=== PATIENT | female | born 1950 | race Caucasian/White ===

== ENCOUNTER 2024-10-03 04:45 | Emergency (ER) | payer MEDICARE, OTHER ==
[~2024-10-03] VITALS: Ht 172.7 cm; Wt 101.6 kg
[2024-10-03 07:01] LABS: BASOPHILS # (AUTO) 0.1 K/UL (0.0-0.2); BASOPHILS % (AUTO) 0.9 % (0.0-2.0); EOSINOPHILS # (AUTO) 0.5 K/uL (0.0-0.7); EOSINOPHILS % (AUTO) 6.3 % (0.0-7.0); HEMATOCRIT 36.4 % (31.2-41.9); HEMOGLOBIN 12.5 g/dL (10.9-14.3); LYMPHOCYTES # (AUTO) 1.2 K/uL (0.8-4.8); LYMPHOCYTES % (AUTO) 15.2 % (20.5-51.5); MEAN CORPUSCULAR HEMOGLOBIN 27.5 uug (24.7-32.8); MEAN CORPUSCULAR HGB CONC 35 g/dL (32.3-35.6); MEAN CORPUSCULAR VOLUME 79.8 fL (75.5-95.3); MONOCYTES # (AUTO) 0.4 K/uL (0.1-1.30); MONOCYTES % (AUTO) 5.6 % (0.0-11.0); NEUTROPHILS # (AUTO) 5.6 K/uL (1.8-8.9); PLATELET COUNT (AUTO) 183 K/uL (179-408); RED BLOOD CELL COUNT(AUTO) 4.56 MIL/uL (3.63-4.92); WHITE BLOOD COUNT (AUTO) 7.8 K/uL (3.8-11.8)
[2024-10-03 07:11] LABS: DIFFERENTIAL COMMENT 1
[2024-10-03 07:22] LABS: ALANINE AMINOTRANSFERASE 19 U/L (14-59); ALBUMIN 3.5 g/dL (3.4-5.0); ALKALINE PHOSPHATASE 72 U/L (50-136); ASPARTATE AMINOTRANSFERASE 14 U/L (15-37); BILIRUBIN,DIRECT 0.2 mg/dL (0.0-0.2); BILIRUBIN,TOTAL 0.6 mg/dL (0.2-1.0); CALCIUM 7.9 mg/dL (8.5-10.1); CARBON DIOXIDE 27 mmol/L (21-32); CHLORIDE 110 mmol/L (98-107); GLUCOSE 112 mg/dL (74-106); NT-PRO BNP 70 pg/mL (0-125); POTASSIUM 3.8 mmol/L (3.5-5.1); SODIUM SERUM 145 mmol/L (136-145); TOTAL PROTEIN, SERUM 6.4 g/dL (6.4-8.2); UREA NITROGEN, BLOOD 14 mg/dL (7-18)
[2024-10-03] MEDS ORDERED: AZITHROMYCIN 250 MG TABLET ONE (07:48)
[2024-10-03] MEDS ORDERED: CEFTRIAXONE /D5W 50ML IVPB **ER PYXIS IV ONE (07:48)
[2024-10-03] MEDS ORDERED: DEXAMETHASONE SOD PHOSPHATE 10 MG INJ ONE (07:49)
[2024-10-03] MEDS: DEXAMETHASONE SOD PHOSPHATE 4 MG INJ IV ONE (08:03)
[2024-10-03] MEDS: AZITHROMYCIN 250 MG TABLET PO ONE (08:04)
[2024-10-03] MEDS: CEFTRIAXONE 1 G in IV DEXTROSE 5% 50 ML IV ONE (08:04)
[2024-10-03] MEDS: IV NORMAL SALINE 1000 ML BAG IV ONE (08:04)
[2024-10-03] MEDS ORDERED: AZIT500T PO (11:21)
[2024-10-03] MEDS ORDERED: PROM118S5 PO (11:21)
[2024-10-03 11:37] VITALS: BP 127/60; TEMP 99.8; O2SAT 96
[2024-10-03 11:54] LABS: *BILIRUBIN,URIN NEGATIVE (NEGATIVE); *BLOOD, URINE NEGATIVE (NEGATIVE); *CLARITY,URINE CLEAR (CLEAR); *COLOR,URINE YELLOW (YELLOW); *KETONES,URINE NEGATIVE (NEGATIVE); *PROTEIN,URINE NEGATIVE (NEGATIVE); *UROBILINOGEN,URINE 0.2 E.U./dl (NORMAL); LEUKOCYTE ESTERASE ,URINE NEGATIVE (NEGATIVE); NITRITE, URINE NEGATIVE (NEGATIVE); PH,URINE 5.5 (5.0-8.0); UGLUCOSE NEGATIVE (NEGATIVE)
== END 2024-10-03 11:38 | disposition home or self-care (01) ==
LOC: ER 04:55
DX: J18.1 Lobar pneumonia, unspecified organism (principal); R19.7 Diarrhea, unspecified; E11.9 Type 2 diabetes mellitus without complications; R94.31 Abnormal electrocardiogram [ECG] [EKG]; Z90.89 Acquired absence of other organs; Z20.822 Contact with and (suspected) exposure to COVID-19; Z88.0 Allergy status to penicillin
CPT/HCPCS: 99285; 96365; 71045; 96375; 87426; 87804 ×2; 80076; 80048; 81003; 83880; 85025; 85730; 86403; 87040 ×2; 87070; 36415; 93005; 83605; 87086; J0696; J1100; J7040 ×2; A4606; A4663; Q0144

== ENCOUNTER 2025-04-04 14:53 | Inpatient (IN) | payer BC, OTHER ==
[~2025-04-04] VITALS: Ht 172.7 cm; Wt 95.7 kg
[~2025-04-04 14:53] MED LIST: ALPR0.255 PO; AZIT500T PO; LEVO125T8 PO; METF-440 PO; MOUNJARO SUBCUT; PARO40TA4 PO; PROM118S5 PO; ROSU20TA2 PO; TERB250T52 PO; TRAZ-252 PO
[2025-04-04] MEDS ORDERED: LORAZEPAM 0.5 MG TABLET ONE (16:28)
[2025-04-04] MEDS: LORAZEPAM 0.5 MG TABLET PO ONE (16:30)
[2025-04-04 16:51] LABS: PLATELET COUNT (AUTO) 195 K/uL (179-408); RED BLOOD CELL COUNT(AUTO) 5.06 MIL/uL (3.63-4.92); RED CELL DISTRIBUTION WIDTH 15.3 % (12.3-17.7); WHITE BLOOD COUNT (AUTO) 6.3 K/uL (3.8-11.8)
[2025-04-04 16:58] LABS: CREATININE 0.9 mg/dL (0.6-1.3); SODIUM SERUM 140 mmol/L (136-145); UREA NITROGEN, BLOOD 16 mg/dL (7-18)
[2025-04-04 17:03] LABS: ASPARTATE AMINOTRANSFERASE 17 U/L (15-37); TOTAL PROTEIN, SERUM 7.0 g/dL (6.4-8.2)
[2025-04-04 17:06] LABS: ETHANOL < 3 MG/DL (0-10)
[2025-04-04 17:25] LABS: *BILIRUBIN,URIN NEGATIVE (NEGATIVE); *BLOOD, URINE NEGATIVE (NEGATIVE); *CLARITY,URINE SLIGHTLY CLOUDY (CLEAR); *COLOR,URINE YELLOW (YELLOW); *KETONES,URINE TRACE (NEGATIVE); *PROTEIN,URINE NEGATIVE (NEGATIVE); *UROBILINOGEN,URINE 0.2 E.U./dl (NORMAL); LEUKOCYTE ESTERASE ,URINE TRACE (NEGATIVE); NITRITE, URINE NEGATIVE (NEGATIVE); UGLUCOSE NEGATIVE (NEGATIVE)
[2025-04-04 17:43] LABS: *AMPHETAMINE, URINE NEGATIVE (NEGATIVE); *BARBITURATE, URINE NEGATIVE (NEGATIVE); *BENZODIAZEPINE, URINE NEGATIVE (NEGATIVE); *CANNABINOID, URINE NEGATIVE (NEGATIVE); *COCCAINE, URINE NEGATIVE (NEGATIVE); *OPIATE, URINE NEGATIVE (NEGATIVE); *PHENCYCLIDINE SCREEN,URINE NEGATIVE (NEGATIVE); FENTANYL, URINE NEGATIVE (NEGATIVE)
[2025-04-04 18:06] LABS: CALCIUM OXALATE CRYSTALS,UR MANY /HPF (NONE SEEN); SQUAMOUS EPITHELIAL CELL,UR MODERATE /HPF (NONE SEEN)
[2025-04-04] MEDS ORDERED: ALBU18HF2 INH (18:22)
[2025-04-04] MEDS ORDERED: METF-440 PO (18:22)
[2025-04-04] MEDS ORDERED: PARO30TA74 PO (18:22)
[2025-04-04] MEDS ORDERED: MULT-213 PO (18:22)
[2025-04-04] MEDS ORDERED: TRAZ-182 PO (18:22)
[2025-04-04] MEDS ORDERED: LIOT5TAB11 PO (18:22)
[2025-04-04] MEDS ORDERED: LEVO125T8 PO (18:22)
[2025-04-04] MEDS ORDERED: ROSU20TA2 PO (18:22)
[2025-04-04] MEDS ORDERED: QUETIAPINE FUMARATE 25 MG TABLET PO PRN ×2 (21:45→22:30)
[2025-04-04] MEDS ORDERED: QUETIAPINE FUMARATE 25 MG TABLET PO ONE (21:45)
[2025-04-04] MEDS ORDERED: MAG HYDROX/AL HYDROX/SIMETH 30 ML LIQUID UDC PO PRN (21:45)
[2025-04-04] MEDS ORDERED: MAGNESIUM HYDROXIDE 30 ML LIQUID UDC PO PRN (21:45)
[2025-04-04] MEDS: BLOOD SUGAR DIAGNOSTIC 1 EACH STRIP VI ONE (22:27)
[2025-04-04] MEDS: ZOLPIDEM 5 MG TABLET PO PRN (22:51)
[2025-04-05 07:43] LABS: GLUCOSE FASTING 120.0 mg/dL (70-115)
[2025-04-05 08:07] VITALS: BP 126/61; TEMP 98.4; O2SAT 96
[2025-04-05] MEDS: PAROXETINE HCL 20 MG TABLET PO SCH (12:00)
[2025-04-05] MEDS ORDERED: ALBUTEROL SULFATE 8 GM HFA.AER.AD INH PRN (12:30)
[2025-04-05] MEDS ORDERED: INSULIN REGULAR, HUMAN 1000 UNIT/10 ML VIAL SQ PRN (13:00)
[2025-04-05] MEDS ORDERED: INSULIN REGULAR, HUMAN 300 UNITS/3 ML VIAL SQ PRN (13:00)
[2025-04-05] MEDS: CLONAZEPAM 0.5 MG TABLET PO SCH (13:00)
[2025-04-05] MEDS ORDERED: DEXTROSE 50% 50 ML DISP.SYRIN IV PRN (13:00)
[2025-04-05] MEDS ORDERED: ALBUTEROL SULFATE 2.5 MG/3 ML NEBU NEB PRN (13:45)
[2025-04-05 15:40] VITALS: BP 105/65; TEMP 98; O2SAT 96
[2025-04-05] MEDS: BLOOD SUGAR DIAGNOSTIC 1 EACH STRIP VI SCH (16:47)
[2025-04-05] MEDS: METFORMIN HCL 500 MG TABLET PO SCH (17:25)
[2025-04-05 19:43] VITALS: BP 111/56; TEMP 99; O2SAT 95
[2025-04-05] MEDS: ATORVASTATIN 40 MG TABLET PO SCH (20:12)
[2025-04-05] MEDS: ZOLPIDEM 5 MG TABLET PO PRN (22:01)
[2025-04-06] MEDS: LIOTHYRONINE SODIUM 5 MCG TABLET PO SCH (06:34)
[2025-04-06] MEDS: LEVOTHYROXINE SODIUM 125 MCG TABLET PO SCH (06:34)
[2025-04-06] MEDS: TERBINAFINE 250 MG TABLET PO SCH (08:15)
[2025-04-06 10:48] VITALS: BP 134/48; TEMP 98.2; O2SAT 99
[2025-04-06 15:55] VITALS: BP 118/65; TEMP 98; O2SAT 96
[2025-04-06 20:00] VITALS: BP 100/46; TEMP 97.6; O2SAT 95
[2025-04-06] MEDS: QUETIAPINE FUMARATE 25 MG TABLET PO SCH (20:38)
[2025-04-07 07:30] VITALS: BP 126/67; TEMP 98; O2SAT 99
[2025-04-07 15:15] VITALS: BP 110/67; TEMP 98; O2SAT 96
[2025-04-07 20:00] VITALS: BP 120/60; TEMP 98.1; O2SAT 95
[2025-04-08 08:40] VITALS: BP 127/49; TEMP 98; O2SAT 96
[2025-04-08 16:36] VITALS: BP 118/51; TEMP 98.1; O2SAT 95
[2025-04-08] MEDS: ACETAMINOPHEN 325 MG TABLET PO PRN (17:46)
[2025-04-08 20:00] VITALS: BP 112/51; TEMP 98.4; O2SAT 94
[2025-04-09 08:00] VITALS: BP 122/61; TEMP 98; O2SAT 96
[2025-04-09 16:51] VITALS: BP 112/68; TEMP 98.1; O2SAT 95
[2025-04-09 19:53] VITALS: BP 115/65; TEMP 98.3; O2SAT 94
[2025-04-10 08:08] VITALS: BP 149/57; TEMP 98.1; O2SAT 95
[2025-04-10 16:05] VITALS: BP 105/64; TEMP 98.1; O2SAT 95
[2025-04-10 20:00] VITALS: BP 115/52; TEMP 98; O2SAT 96
[2025-04-11 00:30] VITALS: BP 114/64; O2SAT 96
[2025-04-11 08:35] VITALS: BP 134/58; TEMP 97.4; O2SAT 95
[2025-04-11] MEDS: CLONAZEPAM 0.5 MG TABLET PO ONE (10:40)
[2025-04-11] MEDS: PAROXETINE HCL 10 MG TABLET PO ONE (10:50)
[2025-04-11 15:46] VITALS: BP 121/56; TEMP 98.3; O2SAT 100
[2025-04-11 19:54] VITALS: BP 122/61; TEMP 98.1; O2SAT 94
[2025-04-12 08:06] VITALS: BP 94/50; TEMP 98.2; O2SAT 98
[2025-04-12 15:19] VITALS: BP 112/58; TEMP 98; O2SAT 98
[2025-04-12 19:50] VITALS: BP 105/51; TEMP 98.2; O2SAT 96
[2025-04-12 20:00] VITALS: BP 103/51; TEMP 98.2; O2SAT 96
[2025-04-13 07:50] VITALS: BP 113/62; TEMP 98; O2SAT 98
== END 2025-04-13 11:15 | DRG 885 ==
LOC: ER 14:53 → GPS 21:23
PROVIDERS: ADMIT Psychiatry & Neurology Psychiatry; ATTEND Student in an Organized Health Care Education/Training Program
DX: F39 Unspecified mood [affective] disorder (principal); F41.1 Generalized anxiety disorder; E78.5 Hyperlipidemia, unspecified; Z85.3 Personal history of malignant neoplasm of breast; Z90.11 Acquired absence of right breast and nipple; E89.0 Postprocedural hypothyroidism; Z79.890 Hormone replacement therapy; Z79.899 Other long term (current) drug therapy; Z88.0 Allergy status to penicillin; Z68.32 Body mass index [BMI] 32.0-32.9, adult; E66.9 Obesity, unspecified; E11.9 Type 2 diabetes mellitus without complications; Z79.85 Long-term (current) use of injectable non-insulin antidiabetic drugs; Z79.84 Long term (current) use of oral hypoglycemic drugs; Z87.891 Personal history of nicotine dependence; Z62.810 Personal history of physical and sexual abuse in childhood
CPT/HCPCS: 36415; 84443; 85025; 87086; A4606; A4663; G0480; J1815

== ENCOUNTER 2025-06-26 09:48 | Emergency (ER) | payer MEDICARE, OTHER ==
[~2025-06-26] VITALS: Ht 172.7 cm; Wt 89.4 kg
[~2025-06-26 09:48] MED LIST changes: +ALBU18HF2 INH; -ALPR0.255 PO; -AZIT500T PO; +LIOT5TAB11 PO; -PARO40TA4 PO; -PROM118S5 PO; -TRAZ-252 PO
[2025-06-26 10:22] LABS: PLATELET COUNT (AUTO) 170 K/uL (179-408); RED BLOOD CELL COUNT(AUTO) 4.79 MIL/uL (3.63-4.92); RED CELL DISTRIBUTION WIDTH 14.7 % (12.3-17.7); WHITE BLOOD COUNT (AUTO) 4.8 K/uL (3.8-11.8)
[2025-06-26 10:29] LABS: CREATININE 0.7 mg/dL (0.6-1.3); SODIUM SERUM 140 mmol/L (136-145); UREA NITROGEN, BLOOD 16 mg/dL (7-18)
[2025-06-26 11:57] VITALS: BP 130/78
[2025-06-26 12:01] VITALS: BP 130/78; O2SAT 99
== END 2025-06-26 12:02 | disposition home or self-care (01) ==
LOC: ER 09:48
DX: R07.89 Other chest pain (principal); F41.1 Generalized anxiety disorder; E11.9 Type 2 diabetes mellitus without complications; E78.5 Hyperlipidemia, unspecified; J98.4 Other disorders of lung; Z79.890 Hormone replacement therapy; Z79.899 Other long term (current) drug therapy; Z88.0 Allergy status to penicillin; Z90.11 Acquired absence of right breast and nipple
CPT/HCPCS: 36415; 71045; 84484; 85025; A4606; A4663